=== PATIENT | female | born 1945 | race Two or more races ===

== ENCOUNTER 2021-01-27 10:15 | Inpatient (IN) | payer OTHER ==
[~2021-01-27] VITALS: Ht 160 cm; Wt 62.6 kg
[2021-01-27] MEDS ORDERED: SIMVASTATIN20 MG PO (11:07)
[2021-01-27] MEDS ORDERED: COZAAR50 MG PO (11:07)
[2021-01-27] MEDS ORDERED: PLAVIX75 MG PO (11:07)
[2021-01-27] MEDS ORDERED: NORVASC5 MG PO (11:07)
[2021-01-27] MEDS ORDERED: METFORMIN HCL500 M3 PO (11:08)
[2021-01-27] MEDS ORDERED: CARAFATE1 GM PO (11:08)
[2021-01-27] MEDS ORDERED: GABAPENTIN300 M2 PO (11:08)
[2021-02-02] MEDS ORDERED: SUCRALFATE1 GM (14:32)
[2021-02-02] MEDS ORDERED: MONTELUKAST SOD10 MG (14:32)
[2021-02-05] MEDS ORDERED: OXYC1TAB9 PO (13:13)
[2021-02-05] MEDS ORDERED: HYOSCYAMINE0.125 M1 SL (13:13)
[2021-02-05] MEDS ORDERED: INTESTINEX680 M1 PO (13:13)
== END 2021-02-05 16:23 | disposition home or self-care (01) | DRG 330 ==
LOC: SURH 02-02 07:00 → SURG 02-02 08:06 → O/R 02-02 08:06 → SURH 02-02 10:15 → SURG 02-02 14:04
PROVIDERS: ADMIT Surgery; ATTEND Surgery
PROC: 0DBP4ZZ Excision of Rectum, Percutaneous Endoscopic Approach (ICD-10-PCS; 2021-02-02)
PROC: 0DBN4ZZ Excision of Sigmoid Colon, Percutaneous Endoscopic Approach (ICD-10-PCS; principal; 2021-02-02 07:00)
DX: K57.20 Diverticulitis of large intestine with perforation and abscess without bleeding (principal); K56.690 Other partial intestinal obstruction; I10 Essential (primary) hypertension; E11.9 Type 2 diabetes mellitus without complications; E78.5 Hyperlipidemia, unspecified; G47.33 Obstructive sleep apnea (adult) (pediatric)